=== PATIENT | female | born 1985 | race African-American/Black ===

== ENCOUNTER 2017-04-14 10:07 | Emergency (ER) | payer BC ==
--- NOTE | ~2017-04-14 | US106 ---
[facility] A Service of [facility] & [facility] RADIOLOGY TEXT RESULTS PATIENT: CARA VILCHIS LOCATION: [place] : 89 UNIT #: [id number] AGE: [address]: Albert Shah DO SEX: F ORDER DR: [id number] [facility] [address] [place], [place] [address] [id number] MR#: [id number] Acc #: [id number] NAME: CARA VILCHIS : 1985 SEX: F STUDY DATE/TIME: 04/14/2017 12:37 UNIT: [place] ROOM: STUDY DESCRIPTION: US Preg Uterus Transvaginal Attending Physician: Albert Shah D.O. Ordering Physician: Albert Shah D.O. Primary Care Physician: Primary Care Physician No MEDICAL IMAGING REPORT This report is preliminary unless electronic signature is present EXAMINATION ultrasound HISTORY Abdominal pain for 3 days. FINDINGS Color flow, arrieta-scale and Doppler spectral waveform analysis was utilized. The patient was examined transabdominally and transvaginally. The uterus measures 7.5 x 4.7 x 6.5 cm. The right ovary measures 3.1 x 2.8 x 3.5 cm, the left ovary 3.1 x 1.5 x 1.4 cm. There is a right ovarian cyst measuring 2.8 cm in greatest diameter. There is a gestational sac within the uterus. Sac appears slightly elongated, measuring up to 2.2 cm in diameter. There is a yolk sac identified, as well as a relatively small pole measuring between 4-5 mm. This corresponds to a 5-asdw-1-day intrauterine . While heart tones were detected sonographically, the heart rate is only listed at 58-59 beats per minute, which would be uncharacteristically low. This may represent transmitted pulsations. CONCLUSION 1. Examination shows a slightly elongated gestational sac in the uterus, with a yolk sac and a pole measuring between 4-5 mm corresponding to a gestational age of 6 weeks 1 day. heart tones were noted by the shipfitters supervisor; however, the heart rate is only listed at 58 beats per minute. I would suggest followup ultrasound imaging of the pelvis in approximately 7 days. 2. Corpus luteum cyst right ovary measuring up to 2.8 cm in diameter. 3. Not mentioned above small amount of free fluid within the pelvis. [facility] A Service of [facility] RADIOLOGY TEXT RESULTS PATIENT: CARA VILCHIS LOCATION: [facility] : [birth year] UNIT #: [id number] AGE: [address]: Albert Shah DO SEX: F ORDER DR: Dictated by... Lei Sy M.D. THIS IS AN ELECTRONICALLY VERIFIED REPORT Lei Sy M.D. at 04/18/2017 7:15 AM MARIELLA/annabelle TD: 04/14/2017 20:54 JOB #: [id number] MEDICAL IMAGING REPORT Page 1 of 1 COPY
[2017-04-14 11:35] LABS: URINE SOURCE CLEAN CATCH
[2017-04-14 11:45] LABS: BASOPHIL% 0.3 % (0-2.5); EOSINOPHIL# 0.1 X10e3 (0-0.7); EOSINOPHIL% 0.6 % (0.0-7.0); HEMATOCRIT 38.4 % (35.0-45.0); LYMPHOCYTE% 18.2 % (17.0-45.0); MEAN CELL VOLUME 95.8 FL (83-96); MEAN CORPUSCULAR HEMOGLOBIN 32.4 PG (28-34); MEAN CORPUSCULAR HGB CONC 33.9 g/dL (30-36); MEAN PLATELET VOLUME 9.7 FL (6.5-11.5); MONOCYTE# 0.7 X10e3 (0-1.0); MONOCYTE% 6.6 % (3.0-12.0); NEUTROPHIL# 8.1 X10e3 (1.5-7.1); NEUTROPHIL% 74.3 % (40-75); PLATELET COUNT 189 X10e3 (140-420); RED BLOOD COUNT 4.01 X10e (3.90-5.30); RED CELL DISTRIBUTION WIDTH 12.3 % (11.0-15.5)
[2017-04-14 11:48] LABS: DIFF IND NO
[2017-04-14 11:54] LABS: URINE APPEARANCE CLEAR; URINE BILIRUBIN NEG (NEG); URINE BLOOD NEG (NEG); URINE COLOR YELLOW; URINE GLUCOSE NEG (NEG); URINE KETONE 3+ (NEG); URINE LEUKOCYTE ESTERASE NEG (NEG); URINE NITRATE NEG (NEG); URINE PH 5.5 (5-8); URINE PROTEIN TRACE (NEG); URINE SPECIFIC GRAVITY 1.029 (1.003-1.035); URINE UROBILINOGEN 0.2 MG/DL (NEG)
[2017-04-14 12:01] LABS: CULTURE INDICATED? NO
[2017-04-14 12:11] LABS: ALBUMIN SERUM 4.5 g/dL (3.5-5.0); BILIRUBIN, DIRECT 0.1 mg/dL (0.0-0.2); BILIRUBIN,INDIRECT 0.3 mg/dL (0.0-0.9); BILIRUBIN,TOTAL 0.4 mg/dL (0.2-2.0); BUN/CREATININE RATIO 18.33; CALCIUM SERUM 9.3 mg/dL (8.4-10.2); CREATININE SERUM 0.6 mg/dL (0.6-1.4); GLOM FILT RATE Estimated 142.8 mL/min (>60); POTASSIUM 3.6 mmol/L (3.5-5.1); PROTEIN TOTAL SERUM 7.6 g/dL (6.0-8.3)
== END 2017-04-14 16:23 | disposition home or self-care (01) ==
LOC: CED 10:07
PROVIDERS: Emergency Medicine
DX: O20.0 Threatened abortion (principal); O21.9 Vomiting of pregnancy, unspecified; Z3A.09 9 weeks gestation of pregnancy
CPT/HCPCS: 36415; 76817; 80048; 80076; 81003; 83690; 84702; 84703; 85025; 86900; 86901; 96361; 96374; 96375; 99284; J2765